=== PATIENT | female | born 1985 | race Caucasian/White ===

== ENCOUNTER 2017-03-09 06:48 | Emergency (ER) | payer OTHER | END 2017-03-09 08:09 | disposition left against medical advice (07) | LOC: JER 06:48 | DX: Z53.21 Procedure and treatment not carried out due to patient leaving prior to being seen by health care provider (principal) | CPT/HCPCS: 99281-25 ==

== ENCOUNTER 2023-06-24 17:00 | Emergency (ER) | payer OTHER ==
[2023-06-24 17:14] VITALS: RESP 16; TEMP 98.4; BMI 21.6
[2023-06-24] MEDS: SODIUM CHLORIDE 0.9% 500 ML INFUS.BAG IV ONE (18:25)
[2023-06-24 18:54] LABS: BASO % 0.5 % (0-2.0); EOS % 1.7 % (0-4.5); HEMATOCRIT 38.6 % (32.4-45.2); HEMOGLOBIN 12.7 GM/dL (10.7-15.3); LYMPH % 27.3 % (8-40); MCH 28.8 pg (25.7-33.7); MCHC 32.9 g/dl (32.0-36.0); MEAN CELL VOLUME 87.6 fl (80-96); MEAN PLT VOLUME 8.5 fl (7.5-11.1); MONO % 6.3 % (3.8-10.2); NEUT % 64.2 % (42.8-82.8); PLATELET COUNT 226 10^3/uL (134-434); RDW 14.7 % (11.6-15.6); WHITE BLOOD COUNT 9.3 K/mm3 (4.0-10.0)
[2023-06-24 18:56] LABS: EPI CELLS 23 /uL (0-25.1); HYALINE CASTS 0 /uL (0-3.1); PH,URINE 7.5 (5.0-8.0); URINE APPEARANCE CLOUDY; URINE BACTERIA 109 /uL (0-1359); URINE BILIRUBIN NEGATIVE (NEGATIVE); URINE COLOR YELLOW; URINE GLUCOSE (UA) NEGATIVE (NEGATIVE); URINE KETONE NEGATIVE (NEGATIVE); URINE LEUK ESTERASE TRACE (NEGATIVE); URINE NITRITE NEGATIVE (NEGATIVE); URINE PROTEIN NEGATIVE (NEGATIVE); URINE UROBILINOGEN 0.2 mg/dL (0.2-1.0); URINE WBC 11 /uL (0-25.8)
[2023-06-24 19:13] LABS: POTASSIUM 3.7 mmol/L (3.5-5.1)
[2023-06-24 19:20] LABS: ALBUMIN 3.6 g/dl (3.4-5.0); BLOOD UREA NITROGEN 8.5 mg/dL (7-18); CALCIUM 8.8 mg/dL (8.5-10.1)
[2023-06-24 19:23] LABS: CREATININE 0.5 mg/dL (0.55-1.3)
[2023-06-24 19:25] LABS: BILIRUBIN,TOTAL 0.1 mg/dL (0.2-1); TOT PROT 6.8 g/dl (6.4-8.2)
[2023-06-24 21:02] LABS: URINE RBC 22.3 /uL (0-23.9); YEAST NONE SEEN (NEGATIVE)
[2023-06-24 21:04] LABS: URINE CRYSTALS MODERATE /hpf
[2023-06-24 22:55] VITALS: BP 124/61; PULSE 74
== END 2023-06-24 22:59 | disposition home or self-care (01) ==
LOC: JER 17:00
DX: O20.0 Threatened abortion (principal); O28.8 Other abnormal findings on antenatal screening of mother; R79.89 Other specified abnormal findings of blood chemistry; Z3A.01 Less than 8 weeks gestation of pregnancy
CPT/HCPCS: 36415; 76817-TC; 80053; 81003; 84702; 85025; 86850; 86900; 86901; 87086; 99284-25

== ENCOUNTER 2023-06-27 11:09 | Emergency (ER) | payer OTHER ==
[2023-06-27 11:17] VITALS: BP 117/64; PULSE 79; RESP 18; TEMP 98; BMI 21.6
[2023-06-27 11:56] LABS: BASO % 0.4 % (0-2.0); EOS % 1.3 % (0-4.5); HEMATOCRIT 39.7 % (32.4-45.2); LYMPH % 17.6 % (8-40); MCH 28.5 pg (25.7-33.7); MCHC 32.6 g/dl (32.0-36.0); MEAN CELL VOLUME 87.5 fl (80-96); MEAN PLT VOLUME 8.2 fl (7.5-11.1); MONO % 5.1 % (3.8-10.2); NEUT % 75.6 % (42.8-82.8); PLATELET COUNT 230 10^3/uL (134-434); RBC 4.54 M/mm3 (3.60-5.2); RDW 14.7 % (11.6-15.6); WHITE BLOOD COUNT 10.9 K/mm3 (4.0-10.0)
[2023-06-27 12:00] LABS: EPI CELLS 3 /uL (0-25.1); HYALINE CASTS 0 /uL (0-3.1); URINE APPEARANCE CLEAR; URINE BACTERIA 4 /uL (0-1359); URINE BILIRUBIN NEGATIVE (NEGATIVE); URINE COLOR YELLOW; URINE GLUCOSE (UA) NEGATIVE (NEGATIVE); URINE KETONE NEGATIVE (NEGATIVE); URINE LEUK ESTERASE NEGATIVE (NEGATIVE); URINE NITRITE NEGATIVE (NEGATIVE); URINE PROTEIN NEGATIVE (NEGATIVE); URINE RBC 110 /uL (0-23.9); URINE UROBILINOGEN 0.2 mg/dL (0.2-1.0); URINE WBC 8 /uL (0-25.8)
[2023-06-27 12:14] LABS: POTASSIUM 3.7 mmol/L (3.5-5.1)
[2023-06-27 12:16] LABS: ALBUMIN 3.5 g/dl (3.4-5.0); BLOOD UREA NITROGEN 8.2 mg/dL (7-18); CALCIUM 9.4 mg/dL (8.5-10.1)
[2023-06-27 12:19] LABS: CREATININE 0.5 mg/dL (0.55-1.3)
[2023-06-27 12:21] LABS: BILIRUBIN,TOTAL 0.3 mg/dL (0.2-1); TOT PROT 7.1 g/dl (6.4-8.2)
== END 2023-06-27 13:53 | disposition home or self-care (01) ==
LOC: JER 11:09
DX: O03.9 Complete or unspecified spontaneous abortion without complication (principal)
CPT/HCPCS: 36415; 80053; 81003; 84702; 85025; 87086; 99283-25

== ENCOUNTER 2023-07-02 04:54 | Day surgery (SDC) | payer OTHER ==
[2023-07-01 15:29] VITALS: BMI 21.6
[2023-07-02] MEDS ORDERED: ACETAMINOPHEN 325 MG TABLET (FP) PO PRN (07:43)
[2023-07-02] MEDS ORDERED: IBUPROFEN 400 MG TABLET (FP) PO PRN (07:43)
[2023-07-02] MEDS ORDERED: FENTANYL CITRATE/PF 50 MCG/ML VIAL ONE (09:55)
[2023-07-02] MEDS ORDERED: PROPOFOL 20 ML ONE (09:56)
[2023-07-02] MEDS ORDERED: MIDAZOLAM HCL 2 MG/2 ML SINGLE DOSE VIAL ONE (09:56)
[2023-07-02] MEDS ORDERED: LIDOCAINE HCL/PF 2% SDV 5ML VIAL ONE (09:57)
[2023-07-02] MEDS ORDERED: ONDANSETRON 4 MG/2 ML VIAL ONE (09:57)
[2023-07-02] MEDS ORDERED: DEXAMETHASONE SOD PHOSPHATE 4 MG/1 ML VIAL ONE (09:57)
[2023-07-02] MEDS ORDERED: KETOROLAC TROMETHAMINE 30 MG/1 ML VIAL ONE (09:57)
[2023-07-02] MEDS ORDERED: PROMETHAZINE HCL 25 MG/1 ML VIAL IVPB PRN (10:33)
[2023-07-02] MEDS ORDERED: oxyCODONE HCL 5 MG TABLET PO PRN (10:33)
[2023-07-02] MEDS ORDERED: ONDANSETRON 4 MG/2 ML VIAL IVPUSH PRN (10:33)
[2023-07-02] MEDS ORDERED: ACETAMINOPHEN 1000 MG/100 ML BAG IVPB PRN (10:34)
[2023-07-02] MEDS ORDERED: LACTATED RINGERS SOLUTION 1,000 ML IV SCH (10:45)
[2023-07-02] MEDS ORDERED: ACETAMINOPHEN INJECTION 100 ML IVPB ONE (10:58)
[2023-07-02] MEDS: ACETAMINOPHEN 1000 MG/100 ML BAG IVPB ONE (11:00)
[2023-07-02 11:49] VITALS: RESP 17; TEMP 97.5
[2023-07-02 13:11] VITALS: BP 112/66; PULSE 65
== END 2023-07-02 13:15 | disposition home or self-care (01) ==
LOC: JASU-SURG 04:54
PROVIDERS: ATTEND Obstetrics & Gynecology
PROC: 10D17ZZ Extraction of Products of Conception, Retained, Via Natural or Artificial Opening (ICD-10-PCS; principal; 2023-07-02 09:00)
DX: O02.1 Missed abortion (principal)
CPT/HCPCS: 88305-TC; 94760; J0131

== ENCOUNTER 2024-06-29 14:08 | Emergency (ER) | payer OTHER ==
[2024-06-29 14:19] VITALS: BP 109/62; PULSE 77; RESP 16; TEMP 98; BMI 23.6
[2024-06-29 15:35] LABS: ABSOLUTE IMMATURE GRANULOCYTES 0.01 x10^3/uL (0.0-0.031); BASOPHILS # 0.03 x10^3/uL (0.01-0.08); EOSINOPHILS # 0.17 x10^3/uL (0.04-0.36); HEMATOCRIT 39.2 % (34.1-44.9); HEMOGLOBIN 12.6 g/dL (11.2-15.7); MCHC 32.1 g/dl (32.2-35.5); MEAN CELL VOLUME 86.9 fl (79.4-94.8); MEAN PLT VOLUME 9.9 fl (9.4-12.3); MONOCYTE # 0.55 x10^3/uL (0.24-0.86); MONOCYTE % 6.3 % (4.7-12.5); PLATELET COUNT # 232 x10^3/uL (182-369); RDW 13.5 % (12.1-16.8)
[2024-06-29 15:36] LABS: HCG,QUALITATIVE URINE Positive
[2024-06-29 15:37] LABS: URINE APPEARANCE CLEAR; URINE BILIRUBIN NEGATIVE (NEGATIVE); URINE COLOR YELLOW; URINE GLUCOSE (UA) NEGATIVE (NEGATIVE); URINE KETONE NEGATIVE (NEGATIVE); URINE LEUK ESTERASE NEGATIVE (NEGATIVE); URINE NITRITE NEGATIVE (NEGATIVE); URINE PROTEIN NEGATIVE (NEGATIVE); URINE UROBILINOGEN 0.2 mg/dL (0.2-1.0)
[2024-06-29 15:43] LABS: INR 1.03 (0.83-1.09); PROTHROMBIN TIME (PATIENT) 11.2 SEC (9.7-13.0)
[2024-06-29 15:46] LABS: ACTIVATED PTT 30.4 SECONDS (25.2-36.5)
[2024-06-29 16:02] LABS: POTASSIUM 3.9 mmol/L (3.5-5.1)
[2024-06-29 16:04] LABS: ALBUMIN 3.9 g/dl (3.4-5.0); BLOOD UREA NITROGEN 8.3 mg/dL (7-18); CALCIUM 9.6 mg/dL (8.5-10.1)
[2024-06-29 16:07] LABS: CREATININE 0.6 mg/dL (0.55-1.3)
[2024-06-29 16:09] LABS: BILIRUBIN,TOTAL 0.2 mg/dL (0.2-1); TOT PROT 7.3 g/dl (6.4-8.2)
[2024-06-29 17:10] LABS: HCV DIAGNOSTIC IN-HOUSE W/RFLX NON-REACTIVE (NONREACTIVE); HIV INTERPRETATION NEGATIVE (NEGATIVE)
== END 2024-06-29 16:29 | disposition home or self-care (01) ==
LOC: JER 14:08
DX: O09.521 Supervision of elderly multigravida, first trimester (principal); O46.8X1 Other antepartum hemorrhage, first trimester; Z3A.01 Less than 8 weeks gestation of pregnancy
CPT/HCPCS: 36415; 76817-TC; 80053; 81003; 84702; 84703; 85025; 85610; 85730; 86803; 86850; 86900; 86901; 87389; 99284-25

== ENCOUNTER 2024-07-02 11:26 | Emergency (ER) | payer OTHER ==
[2024-07-02 11:32] VITALS: BP 117/69; PULSE 70; RESP 20; TEMP 98.8; BMI 23.1
== END 2024-07-02 14:49 | disposition home or self-care (01) ==
LOC: JER 11:26
DX: O03.4 Incomplete spontaneous abortion without complication (principal)
CPT/HCPCS: 36415; 84702; 99283-25